=== PATIENT | male | born 1990 ===

== ENCOUNTER → 2018-05-02 | Outpatient (REF) | payer OTHER ==
[2018-05-02 15:54] LABS: % NORMAL FORMS 10 % (>=4); IMMOTILITY 49 %; NON PROGRESSIVE MOTILITY (c) 10 %; PROGRESSIVE MOTILITY (a) 41 % (>=32); SEMEN APPEARANCE OPAQUE (OPAQUE); SEMEN VISCOSITY LIQUID (LIQUID); SEMEN VOLUME 2.5 ml (4.0-5.0); SEMEN pH 8.5 (7.0-8.0); TOTAL MOTILITY 51 % (>=40); WBC CONCENTRATION <=1 M/ml (<=1 M/ml)
[2018-05-02 15:55] LABS: SPERM# 195.1 M/Ejac (>=39); TOTAL PROGRESSIVE SPERM 79.2 M/Ejac.
== END ==
LOC: M LAB REF 15:15
DX: N46.8 Other male infertility (principal)